=== PATIENT | female | born 1955 | race African-American/Black ===

== ENCOUNTER 2017-01-04 00:56 | Emergency (ER) | payer OTHER ==
[~2017-01-04] VITALS: Ht 170.2 cm; Wt 97.0 kg
[~2017-01-04 00:56] MED LIST: ASPI81TA82 PO; CALTCHW4 PO; CLAR10TA7 PO; COQ-200C PO; GARL10002 PO; KETO1DRO7 EACH EYE; LORA10TA7 PO; LOVA40TA PO; OMEG5CAP PO; PERC7.5T13 PO; PROT40TA PO; SERT100 PO; TAB-TAB PO; TEMA15 PO; TOPI50TA4 PO; TOVI8TAB PO; VENTAER INH
[2017-01-04 00:58] VITALS: BP 157/73; PULSE 78; RESP 16; TEMP 98; O2SAT 97
--- NOTE | 2017-01-04 01:45 | PD ---
HPI Chief Complaint: Respiratory Symptoms Time Seen by Provider: 01:42 Travel History International Travel<30 days: No Contact w/Intl Traveler<30days: No Traveled to known affect area: No History of Present Illness HPI 61-year-old black female with a history of sarcoidosis and sleep apnea presents to emergency Department with complaints of shortness of breath. She states that she's had these symptoms on and off now for many months. She has been seen by her primary care doctor who referred her back to her ultrasonic tester Dr. cortez. She states that he evaluated her and did not feel that it was secondary to any restrictive lung disease. The patient states that she was prescribed a albuterol inhaler but does not use it because she does not feel it helps. She denies any calf swelling. She does report pain in her legs. No chest pain. No palpitations. No recent illness. PFSH Past Medical History Anxiety: Yes Cancer: No Cardiovascular Problems: No High Cholesterol: Yes COPD: Yes Diabetes: Yes (METFORMIN) Diminished Hearing: No Endocrine: No GERD: Yes Genitourinary: No Headaches: Yes Hepatitis: No Hiatal Hernia: No Immune Disorder: Yes (SARCODOSIS) Musculoskeletal: Yes (ARTHRITIS, SHIRA KNEE PATELLAR SEPARATION) Neurologic: No Psychiatric: Yes (CLAUSTROPHOBIC) Reproductive: No Respiratory: Yes (SARCOIDOSIS/SLEEP APNEA) Migraines: Yes Thyroid Disease: No Tetanus Vaccination: < 5 Years Menopausal: Yes Past Surgical History AICD: No Body Medical Devices: MARKER IN R BREAST FOLLOWING BIOPSY Gynecologic Surgery: Yes (HYSTERECTOMY ) Hysterectomy: Yes (PARTIAL IN ) Joint Replacement: No Pacemaker: No Thoracic Surgery: Yes (BROCHOSCOPY) Other Surgery: Yes (HYSTERECTOMY) Social History Alcohol Use: No Tobacco Use: No Substance Use: No Allergies-Medications (Allergen,Severity, Reaction): Coded Allergies: Naproxen (Verified Allergy, Severe, Hallucinations, 01/04/17) Niacin (Verified Allergy, Intermediate, HIVES, 01/04/17) *MDRO Multi-Drug Resistant Organism (Verified Adverse Reaction, Unknown, ) MRSA 2002 HMG-CoA Reductase Inhibitors (Verified Adverse Reaction, Unknown, Cramping , 01/04/17) Reported Meds & Prescriptions Reported Meds & Active Scripts Active Percocet 7.5/325 (Oxycodone/Acetaminophen) Oxycodone 7.5/325 Acetaminophen Tab 1 -2 Tab PO Q4-6H FOR PAIN Reported Allergy Eye Drops (Ketotifen Fumarate (Ophth)) 0.025 % Lars 1 Drop EACH EYE BID PRN Claritin (Loratadine) 10 Mg Tab 10 Mg PO DAILY Claritin (Loratadine) 10 Mg Tab 10 Mg PO DAILY PRN Restoril 15 mg (Temazepam) 15 Mg Cap 1 Cap PO HS Lovastatin 40 Mg Tab 40 Mg PO HS Multivitamin (Multivitamins) 1 Tab Tab 1 Tab PO DAILY Ventolin Hfa (Albuterol Sulfate) 18 Gm Aero 2 Puff INH Q4 PRN * SHAKE WELL BEFORE USE * Toviaz (Fesoterodine Fumarate) 8 Mg Tab 8 Mg PO DAILY *SWALLOW TABLET WHOLE* Garlic 1,000 Mg Cap 1,000 Mg PO DAILY Coq-10 (Coenzyme Q10 (Ubidecarenone)) 200 Mg Cap 200 Mg PO DAILY Fish Oil 1200 mg ([place]-3 Fatty Acids) 1 Cap Cap 1 Cap PO DAILY Protonix (Pantoprazole Sodium) 40 Mg Tab 40 Mg PO BID Caltrate 600+D (Calcium Carbonate/Cholecalciferol) Chw 1 PO DAILY Aspir-81 (Aspirin) 81 Mg Tab 81 Mg PO DAILY Topamax (Topiramate) 50 Mg Tab 50 Mg PO BID Zoloft (Sertraline HCl) 100 Mg Tab 150 Mg PO HS Review of Systems Except as stated in HPI: all other systems reviewed are Neg Physical Exam Narrative GENERAL: Well-developed, well-nourished in no acute distress. Nontoxic appearing. HEAD: Normocephalic, atraumatic. EYES: Pupils equal round and reactive. Extraocular motions intact. No scleral icterus. No injection or drainage. ENT: TMs clear without erythema. The external auditory canals clear. Nose: clear . Posterior pharynx is pink and moist. No tonsillar edema or exudate. Uvula midline. Airway patent. NECK: Trachea midline.Supple, nontender, moves head freely. No central bony tenderness or spasm. CARDIOVASCULAR: Regular rate and rhythm without murmurs, gallops, or rubs. RESPIRATORY: Clear to auscultation. Breath sounds equal bilaterally. No wheezes , rales, or rhonchi. GASTROINTESTINAL: Abdomen soft, non-tender, nondistended. No hepato-splenomegaly , or palpable masses. No guarding. EXTREMITIES: No clubbing, cyanosis, or edema. No joint tenderness, effusion, or edema noted. BACK: Nontender without deformity or crepitance. No flank tenderness. Data Data Last Documented VS Vital Signs Date Time Temp Pulse Resp B/P Pulse Ox O2 Delivery O2 Flow Rate FiO2 01/04/17 00:58 98.0 78 16 157/73 97 Orders Complete Blood Count With Diff (01/04/17 01:35) Basic Metabolic Panel (Bmp) (01/04/17 01:35) Chest, Pa & Lat (01/04/17 01:35) Labs Laboratory Tests Test 01/04/17 02:15 White Blood Count 8.3 TH/MM3 Red Blood Count 5.12 MIL/MM3 Hemoglobin 14.1 GM/DL Hematocrit 42.9 % Mean Corpuscular Volume 83.8 FL Mean Corpuscular Hemoglobin 27.6 PG Mean Corpuscular Hemoglobin 33.0 % Concent Red Cell Distribution Width 15.1 % Platelet Count 254 TH/MM3 Mean Platelet Volume 9.8 FL Neutrophils (%) (Auto) 47.7 % Lymphocytes (%) (Auto) 35.5 % Monocytes (%) (Auto) 8.3 % Eosinophils (%) (Auto) 6.7 % Basophils (%) (Auto) 1.8 % Neutrophils # (Auto) 4.0 TH/MM3 Lymphocytes # (Auto) 3.0 TH/MM3 Monocytes # (Auto) 0.7 TH/MM3 Eosinophils # (Auto) 0.6 TH/MM3 Basophils # (Auto) 0.2 TH/MM3 CBC Comment DIFF FINAL Differential Comment Sodium Level 142 MEQ/L Potassium Level 3.8 MEQ/L Chloride Level 109 MEQ/L Carbon Dioxide Level 23.8 MEQ/L Anion Gap 9 MEQ/L Blood Urea Nitrogen 15 MG/DL Creatinine 1.15 MG/DL Estimat Glomerular Filtration 58 ML/MIN Rate Random Glucose 100 MG/DL Calcium Level 9.0 MG/DL [facility] Medical Decision Making Medical Screen Exam Complete: Yes Emergency Medical Condition: Yes Medical Record Reviewed: Yes Interpretation(s) Laboratory Tests Test 01/04/17 02:15 White Blood Count 8.3 TH/MM3 Red Blood Count 5.12 MIL/MM3 Hemoglobin 14.1 GM/DL Hematocrit 42.9 % Mean Corpuscular Volume 83.8 FL Mean Corpuscular Hemoglobin 27.6 PG Mean Corpuscular Hemoglobin 33.0 % Concent Red Cell Distribution Width 15.1 % Platelet Count 254 TH/MM3 Mean Platelet Volume 9.8 FL Neutrophils (%) (Auto) 47.7 % Lymphocytes (%) (Auto) 35.5 % Monocytes (%) (Auto) 8.3 % Eosinophils (%) (Auto) 6.7 % Basophils (%) (Auto) 1.8 % Neutrophils # (Auto) 4.0 TH/MM3 Lymphocytes # (Auto) 3.0 TH/MM3 Monocytes # (Auto) 0.7 TH/MM3 Eosinophils # (Auto) 0.6 TH/MM3 Basophils # (Auto) 0.2 TH/MM3 CBC Comment DIFF FINAL Differential Comment Sodium Level 142 MEQ/L Potassium Level 3.8 MEQ/L Chloride Level 109 MEQ/L Carbon Dioxide Level 23.8 MEQ/L Anion Gap 9 MEQ/L Blood Urea Nitrogen 15 MG/DL Creatinine 1.15 MG/DL Estimat Glomerular Filtration 58 ML/MIN Rate Random Glucose 100 MG/DL Calcium Level 9.0 MG/DL Chest x-ray: Negative for acute bony process Differential Diagnosis MDM: High Differential diagnoses: Pneumonia, bronchitis, URI, asthma, RAD, legionnaire's disease, SARS, ARDS, influenza, bronchiolitis, RSV,PE,CHF Narrative Course Patient's chest x-ray and laboratory tests are unremarkable. This is dyspnea, sarcoidosis. A she'll be discharged home on Pulmicort. Diagnosis Primary Impression: Dyspnea Qualified Code: R06.00 - Dyspnea, unspecified type Additional Impression: Sarcoidosis of lung Patient Instructions: General Instructions Additional Instructions: Rest. Pulmicort. Notify your doctor Thursday morning and make an appointment to be seen in next few days. Return to the ER for any problems. Med/Other Pt SpecificInfo: Prescription(s) given Scripts Budesonide Powder Inh (Pulmicort Flexhaler)90 Mcg/Act Inhp90 Mcg INH Q12HR #1 INHALER Ref 0 Prov:Juan Pablo Medeiros MD 01/04/17 Disposition: 01 DISCHARGE HOME Condition: Stable Merritt Orantes Jan 04, 2017 01:45
[2017-01-04 02:27] LABS: BASOPHIL # 0.2 TH/MM3 (0-0.2); BASOPHIL % 1.8 % (0.0-2.0); EOSINOPHIL # 0.6 TH/MM3 (0-0.4); EOSINOPHIL % 6.7 % (0.0-4.0); HEMATOCRIT 42.9 % (35.0-46.0); HEMO FLAGS DIFF FINAL; LYMPH % 35.5 % (9.0-44.0); MEAN CELL VOLUME 83.8 FL (80.0-100.0); MEAN CORPUSCULAR HEMOGLOBIN 27.6 PG (27.0-34.0); MONO % 8.3 % (0.0-8.0); NEUT % 47.7 % (16.0-70.0); PLATELET COUNT 254 TH/MM3 (150-450); RED BLOOD COUNT 5.12 MIL/MM3 (4.00-5.30); RED CELL DISTRIBUTION WIDTH 15.1 % (11.6-17.2); WHITE BLOOD COUNT 8.3 TH/MM3 (4.0-11.0)
--- NOTE | 2017-01-04 02:41 | RADRPT ---
EXAM DATE/TIME: 01/04/2017 02:17 [facility] COMPARISON: No previous studies available for comparison. INDICATIONS : Shortness of breath. MEDICAL HISTORY : None. SURGICAL HISTORY : None. ENCOUNTER: Initial ACUITY: 1 month PAIN SCORE: 0/10 LOCATION: Bilateral chest FINDINGS: PA and lateral views of the chest demonstrate the lungs to be symmetrically aerated without evidence of mass, infiltrate or effusion. The cardiomediastinal contours are unremarkable. Osseous structure s are intact. CONCLUSION: No acute disease. William Figueredo MD on January 04, 2017 at 2:39 Board Certified Radiologist. This report was verified electronically.
[2017-01-04 02:57] LABS: BICARBONATE 23.8 MEQ/L (21.0-32.0); POTASSIUM 3.8 MEQ/L (3.5-5.1)
[2017-01-04] MEDS ORDERED: PULM90IN INH (03:06)
== END 2017-01-04 03:30 | disposition home or self-care (01) ==
LOC: NEPB 00:56
DX: D86.0 Sarcoidosis of lung (principal)
CPT/HCPCS: 71020; 80048; 85025; 99283